=== PATIENT | female | born 1950 | race African-American/Black ===

== ENCOUNTER 2016-08-05 13:50 | Outpatient (CLI) | payer MEDICARE ==
--- NOTE | 2016-08-05 14:53 | Mammography Report ---
BONE DENSITY STUDY: Postmenopausal osteoporosis. DEFINITIONS: BMD = Bone Mineral Density T-score = BMD related to mean peak bone mass of young adult (mean expressed in Standard Deviation) Z-score = Age matched BMD expressed in SD World Health Organization (WHO) Diagnostic Criteria Normal T-score > -1 SD Osteopenia T-score between -1 and -2.4 SD Osteoporosis T-score -2.5 SD or below FINDINGS: The weighted average BMD of lumbar spine L1-L4 is 0.775 with a T-score of -2.5. The weighted average BMD of the left hip is 0.708 with a T-score of -1.9. The femoral neck BMD is 0.595 with a T. value score of -2.3. IMPRESSION: The patient's average T-score is diagnostic for osteoporosis and high relative risk for fracture. NOTE: BMD is not the only risk factor for fracture; also consider factors such as the patient's age, risk of falling, previous osteoporotic fracture, family history of osteoporotic fractures, current smoker, and low body weight. Fall's triangle is a region of interest in femur, predominantly of trabecular bone. It is not a true anatomic site, and [facility] does not recommend its use clinically.
== END 2016-08-05 13:51 | disposition home or self-care (01) ==
LOC: MAMMO 13:50
PROVIDERS: ATTEND Family Medicine
DX: M81.0 Age-related osteoporosis without current pathological fracture (principal); Z78.0 Asymptomatic menopausal state
CPT/HCPCS: 77080

== ENCOUNTER 2017-05-06 08:41 | Outpatient (CLI) | payer MEDICARE ==
--- NOTE | 2017-05-06 13:31 | Mammography Report ---
BILATERAL DIGITAL SCREENING MAMMOGRAM with CAD: 05/06/17 08:41:00 CLINICAL: Routine screening. COMPARISON:None available. She doesn't remember when or where she previously had a mammogram. FINDINGS: The breasts are mostly fatty. A right upper asymmetry requires additional imaging.No architectural distortion or suspicious calcifications.The left breast is negative. IMPRESSION: Right asymmetry requiring further workup. BI-RADS CATEGORY: 0 -- Additional Imaging Evaluation Required RECOMMENDATION: Recall for right exaggerated CC, mediolateral , spot compression MLO views and right breast ultrasound if needed. ACR BI-RADS MAMMOGRAPHIC CODES: 0 = Needs additional imaging evaluation; 1 = Negative; 2 = Benign; 3 = Probably benign; 4 = Suspicious; 5 = Malignant; 6 = Known biopsy-proven malignancy COMMENT: 1. Dense breast tissue, i.e., adenosis, fibrocystic changes, etc., may obscure an underlying neoplasm. 2. Approximately 10% of cancers are not detected with mammography. 3. A negative mammography report should not delay biopsy if a clinically suspicious mass is present. COMMENT: Patient follow-up letters are generated via our [employer] application.
== END 2017-05-06 08:42 | disposition home or self-care (01) ==
LOC: MAMMO 08:41
PROVIDERS: ATTEND Family Medicine
DX: Z12.31 Encounter for screening mammogram for malignant neoplasm of breast (principal)
CPT/HCPCS: 77067

== ENCOUNTER 2017-05-27 09:15 | Outpatient (CLI) | payer MEDICARE ==
--- NOTE | 2017-05-27 09:55 | Mammography Report ---
RIGHT DIGITAL DIAGNOSTIC MAMMOGRAM : 05/27/17 09:15:00 CLINICAL: Recalled for asymmetry. COMPARISON: screening FINDINGS: ML, exaggerate CC and spot compression MLO views were performed and are negative. IMPRESSION: Negative Mammogram. BI-RADS CATEGORY: 1 -- Negative RECOMMENDATION: Routine mammographic screening in one year. ACR BI-RADS MAMMOGRAPHIC CODES: 0 = Needs additional imaging evaluation; 1 = Negative; 2 = Benign; 3 = Probably benign; 4 = Suspicious; 5 = Malignant; 6 = Known biopsy-proven malignancy COMMENT: 1. Dense breast tissue, i.e., adenosis, fibrocystic changes, etc., may obscure an underlying neoplasm. 2. Approximately 10% of cancers are not detected with mammography. 3. A negative mammography report should not delay biopsy if a clinically suspicious mass is present. COMMENT: Patient follow-up letters are generated via our [employer] application.
== END 2017-05-27 09:16 | disposition home or self-care (01) ==
LOC: MAMMO 09:15
PROVIDERS: ATTEND Family Medicine
DX: R92.8 Other abnormal and inconclusive findings on diagnostic imaging of breast (principal)

== ENCOUNTER 2017-11-04 08:29 | Outpatient (CLI) | payer MEDICARE ==
[2017-11-04 09:25] LABS: Blood Urea Nitrogen 11 mg/dL (7-17)
[2017-11-04] MEDS ORDERED: NACL 0.9% 50 ML ONE (09:51)
--- NOTE | 2017-11-04 23:09 | Cat Scan Report ---
FINAL REPORT PROCEDURE: CT ABDOMEN W CON TECHNIQUE: Computerized axial tomography of the abdomen was performed following the IV injection of iodinated nonionic contrast. HISTORY: Dilated common bile duct COMPARISON: No prior studies are available for comparison. FINDINGS: Visualized lower thorax: No significant abnormality. Liver: There are 2 circumscribed focal low-density lesions in the right hepatic lobe, measuring up to 15 millimeters, likely cysts. Spleen: Normal size and attenuation. Gallbladder and biliary system: Gallbladder is present. The common bile duct measures up to 8 millimeters in caliber. Pancreas: There is dilatation of the pancreatic duct. Adrenals: Normal. Kidneys: Normal. GI tract: Thickening of the distal stomach wall could be accentuated by contraction. No acute inflammatory changes are seen. No abnormal bowel dilatation Lymph nodes and mesentery: Normal. Vasculature: Normal. Peritoneum: No free fluid. Musculoskeletal structures: No significant abnormality. Other: None . IMPRESSION: Mild prominence of the common bile duct and pancreatic duct. Cannot exclude an obstructing lesion at the ampulla There is thickening of the distal stomach wall, which could be accentuated by lack of distention. This could be further evaluated with endoscopy
== END 2017-11-04 08:30 | disposition home or self-care (01) ==
LOC: CT 08:29
PROVIDERS: ATTEND Family Medicine
DX: K86.89 Other specified diseases of pancreas (principal)
CPT/HCPCS: 36415; 74160; 82565; 84520; Q9967